=== PATIENT | male | born 1945 | race Caucasian/White ===

== ENCOUNTER 2024-07-15 13:00 | Outpatient (RCR) | payer OTHER | END 2024-07-18 | LOC: PT 13:00 | PROVIDERS: ATTEND Specialist | DX: S82.431D Displaced oblique fracture of shaft of right fibula, subsequent encounter for closed fracture with routine healing (principal); I63.9 Cerebral infarction, unspecified; M62.81 Muscle weakness (generalized); R26.2 Difficulty in walking, not elsewhere classified ==

== ENCOUNTER 2024-07-22 11:10 | Outpatient (RCR) | payer OTHER | END 2024-08-18 | LOC: PT 11:10 | PROVIDERS: ATTEND Specialist | DX: S82.431D Displaced oblique fracture of shaft of right fibula, subsequent encounter for closed fracture with routine healing (principal); I63.9 Cerebral infarction, unspecified; M62.81 Muscle weakness (generalized); R26.2 Difficulty in walking, not elsewhere classified; Z91.81 History of falling ==